=== PATIENT | male | born 1940 | race Caucasian/White ===

== ENCOUNTER 2017-12-06 18:20 | Inpatient (IN) | payer OTHER, MEDICARE ==
[~2017-12-06] VITALS: Ht 177.8 cm; Wt 92.2 kg
[~2017-12-06 18:20] MED LIST: ACET500 PO; AMLO10 PO; ASPI81CH PO; BISA5EC PO; CARV6.25 PO; CETI5 PO; CHOL10002 PO; CLON.1 PO; CLON.2 PO; GEMF600 PO; Glucagon Emergen1 MG SC; Glucose Gel38 GM PO; IBUP400 PO; INSUASPI SC; INSULANPEN SC; KETO.5OPSO BOTHEYES; MENTHOL TOP; METHYL TOP; NITR.4SL SL; NITR.6SL SL; OFLO.3OPSO BOTHEYES; Omnipred10 ML BOTHEYES; PANT20 PO; Prilosec Otc20 MG PO; RANI150 PO; TAMS.4ER PO; Thera-Gesic Ana85 GM TOP
[2017-12-06 20:15] LABS: Creatinine, Blood 1.26 mg/dL (0.60-1.20)
[2017-12-06 22:58] LABS: Bun/Creatinine Ratio 17.5 (12.0-20.0); Calcium, Blood 8.8 mg/dL (8.5-10.1); Potassium, Blood 4.4 mmol/L (3.5-5.5)
[2017-12-07 05:46] LABS: Hematocrit 38.4 % (37.0-53.0); Hemoglobin 12.5 g/dL (13.5-17.5); Mean Corpuscular HGB 28.1 pg (26.0-34.0); Mean Corpuscular HGB Conc 32.6 g/dL (31.5-36.5); Mean Corpuscular Volume 86 fL (80-100); Platelet Count 241 K/mm3 (150-400); RDW Coefficient Variation 13.5 % (11.7-14.2); RDW Standard Deviation 41.4 fL (35.1-46.3); Red Blood Cell Count 4.45 M/mm3 (4.30-5.90); White Blood Cell Count 6.69 K/mm3 (4.00-11.30)
[2017-12-07 06:11] LABS: Anion Gap 9 mmol/L (6-16); Blood Urea Nitrogen 22 mg/dL (8-24); Bun/Creatinine Ratio 21.8 (12.0-20.0); CO2, Blood 25 mmol/L (21-32); Calcium, Blood 8.5 mg/dL (8.5-10.1); Chloride, Blood 109 mmol/L (98-108); Creatinine, Blood 1.01 mg/dL (0.60-1.20); Glomerular Filtration Rate >60 (60-); Glucose, Blood 100 mg/dL (70-99); Potassium, Blood 4.2 mmol/L (3.5-5.5); Sodium, Blood 143 mmol/L (136-145)
[2017-12-07 06:13] LABS: Troponin I 0.243 ng/mL (0.000-0.040)
[2017-12-08 04:00] LABS: BASOPHILS ABSOLUTE AUTO 0.04 K/mm3 (0.00-0.23); BASOPHILS PERCENT AUTO 0 % (0-2); EOSINOPHILS ABSOLUTE AUTO 0.29 K/mm3 (0.00-0.68); EOSINOPHILS PERCENT AUTO 3 % (0-6); Hematocrit 38.3 % (37.0-53.0); Hemoglobin 12.7 g/dL (13.5-17.5); IMMATURE GRAN ABSOLUTE AUTO 0.04 K/mm3 (0.00-0.10); IMMATURE GRAN PERCENT AUTO 0 % (0-1); LYMPHOCYTES ABSOLUTE AUTO 1.74 K/mm3 (0.84-5.20); LYMPHOCYTES PERCENT AUTO 18 % (21-46); MONOCYTES ABSOLUTE AUTO 0.66 K/mm3 (0.16-1.47); MONOCYTES PERCENT AUTO 7 % (4-13); Mean Corpuscular HGB Conc 33.2 g/dL (31.5-36.5); Mean Corpuscular Volume 84 fL (80-100); Mean Platelet Volume 11.2 fL (9.1-12.4); NEUTROPHILS ABSOLUTE AUTO 6.96 K/mm3 (1.96-9.15); NEUTROPHILS PERCENT AUTO 72 % (41-73); Platelet Count 249 K/mm3 (150-400); RDW Coefficient Variation 13.7 % (11.7-14.2); RDW Standard Deviation 41.9 fL (35.1-46.3); Red Blood Cell Count 4.54 M/mm3 (4.30-5.90); White Blood Cell Count 9.73 K/mm3 (4.00-11.30)
[2017-12-08 04:19] LABS: Albumin, Blood 3.4 g/dL (3.4-5.0); Anion Gap 8 mmol/L (6-16); Blood Urea Nitrogen 16 mg/dL (8-24); Bun/Creatinine Ratio 18.5 (12.0-20.0); CHOL/HDL RATIO 4.4; CO2, Blood 24 mmol/L (21-32); Calcium, Blood 8.6 mg/dL (8.5-10.1); Chloride, Blood 110 mmol/L (98-108); Cholesterol 148 mg/dL (50-200); Creatinine, Blood 0.87 mg/dL (0.60-1.20); Glomerular Filtration Rate >60 (60-); Glucose, Blood 119 mg/dL (70-99); HDL Cholesterol 34 mg/dL (>39); Low Density Lipoprotein Chol 101 mg/dL (0-110); Phosphorus, Blood 2.6 mg/dL (2.5-4.9); Potassium, Blood 3.9 mmol/L (3.5-5.5); Sodium, Blood 142 mmol/L (136-145); Triglycerides 67 mg/dL (30-160); Very Low Density Lipoprot Chol 13 mg/dL (6-32)
[2017-12-08] MEDS ORDERED: BAYER CHEWABLE81 MG PO (10:38)
[2017-12-08] MEDS ORDERED: CLOP75 PO (10:38)
[2017-12-08] MEDS ORDERED: Novolog Fl100 UNIT/1 SC (10:54)
== END 2017-12-08 11:39 | disposition home or self-care (01) | DRG 247 ==
LOC: ER 18:20 → ICUE 19:37 → ICUW 19:37 → ICUE 21:14
PROVIDERS: Internal Medicine; Internal Medicine Interventional Cardiology; Nurse Practitioner Acute Care
PROC: 027034Z Dilation of Coronary Artery, One Artery with Drug-eluting Intraluminal Device, Percutaneous Approach (ICD-10-PCS; principal; 2017-12-07)
PROC: B240ZZ3 Ultrasonography of Single Coronary Artery, Intravascular (ICD-10-PCS; 2017-12-07)
PROC: B2111ZZ Fluoroscopy of Multiple Coronary Arteries using Low Osmolar Contrast (ICD-10-PCS; 2017-12-07)
DX: I21.4 Non-ST elevation (NSTEMI) myocardial infarction (principal); K21.9 Gastro-esophageal reflux disease without esophagitis; Z87.891 Personal history of nicotine dependence; Z79.4 Long term (current) use of insulin; E11.9 Type 2 diabetes mellitus without complications; E78.00 Pure hypercholesterolemia, unspecified; I48.91 Unspecified atrial fibrillation; I44.7 Left bundle-branch block, unspecified; J30.9 Allergic rhinitis, unspecified; N40.0 Benign prostatic hyperplasia without lower urinary tract symptoms; I65.29 Occlusion and stenosis of unspecified carotid artery; I16.0 Hypertensive urgency; E78.1 Pure hyperglyceridemia; G47.33 Obstructive sleep apnea (adult) (pediatric); Z79.82 Long term (current) use of aspirin; Z79.01 Long term (current) use of anticoagulants; I25.10 Atherosclerotic heart disease of native coronary artery without angina pectoris; I48.0 Paroxysmal atrial fibrillation; I48.2 Chronic atrial fibrillation; Z98.52 Vasectomy status; I10 Essential (primary) hypertension
CPT/HCPCS: 36415; 71046; 80048; 80061; 80069; 82947; 83036; 84484; 85025; 85027; 85347; 92978; 93005; 93010; 93306; 93454; 94660; 99152; 99153; 99285; C1725; C1753; C1760; C1769; C1874; C1887; C1894; C9600; J0360; J1644; J1650; J1815; J2250; J3010; J7030; Q9967

== ENCOUNTER 2023-08-14 19:21 | Inpatient (IN) | payer OTHER ==
[~2023-08-14] VITALS: Ht 175.3 cm; Wt 85.4 kg
[~2023-08-14 19:21] MED LIST changes: +BAYER CHEWABLE81 MG PO; +CARV3.125 PO; -CARV6.25 PO; +CLOP75 PO; +Novolog Fl100 UNIT/1 SC
[2023-08-14] MEDS ORDERED: Atropine Sulfate 0.1 MG/ML 10ML SYR IV ONE (19:50)
[2023-08-14 20:15] LABS: Calcium, Ionized (POC) 1.12 mmol/L (1.10-1.46); Chloride (POC) 105 mmol/L (98-108); Creatinine (POC) 1.3 mg/dL (0.8-1.3); Glucose (ISTAT POC) 178 mg/dL (70-99); Hemoglobin (POC) 14.6 g/dL (13.5-17.5); Potassium (POC) 4.3 mmol/L (3.5-5.5); Sodium (POC) 138 mmol/L (135-148); Total CO2 (POC) 22 mmol/L (21-32)
[2023-08-14 20:15] LABS: BASOPHILS ABSOLUTE AUTO 0.06 K/mm3 (0.00-0.23); BASOPHILS PERCENT AUTO 1 % (0-2); EOSINOPHILS ABSOLUTE AUTO 0.54 K/mm3 (0.00-0.68); EOSINOPHILS PERCENT AUTO 6 % (0-6); Hematocrit 43.4 % (37.0-53.0); Hemoglobin 14.1 g/dL (13.5-17.5); IMMATURE GRAN ABSOLUTE AUTO 0.03 K/mm3 (0.00-0.10); IMMATURE GRAN PERCENT AUTO 0 % (0-1); LYMPHOCYTES ABSOLUTE AUTO 2.27 K/mm3 (0.84-5.20); LYMPHOCYTES PERCENT AUTO 25 % (21-46); MONOCYTES ABSOLUTE AUTO 0.62 K/mm3 (0.16-1.47); MONOCYTES PERCENT AUTO 7 % (4-13); Mean Corpuscular HGB 28.7 pg (26.0-34.0); Mean Corpuscular HGB Conc 32.5 g/dL (31.5-36.5); Mean Corpuscular Volume 88 fL (80-100); NEUTROPHILS ABSOLUTE AUTO 5.45 K/mm3 (1.96-9.15); NEUTROPHILS PERCENT AUTO 61 % (41-73); Platelet Count 208 K/mm3 (150-400); Red Blood Cell Count 4.91 M/mm3 (4.30-5.90); White Blood Cell Count 8.97 K/mm3 (4.00-11.30)
[2023-08-14 20:44] LABS: Magnesium, Blood 2.3 mg/dL (1.6-2.4)
[2023-08-14 20:45] LABS: Albumin, Blood 3.5 g/dL (3.4-5.0); Albumin/Globulin Ratio 1.2 (0.8-1.8); Bilirubin, Total 0.4 mg/dL (0.1-1.0); Bun/Creatinine Ratio 17.8 (12.0-20.0); Calcium, Blood 8.4 mg/dL (8.5-10.1); Creatinine, Blood 1.18 mg/dL (0.60-1.20); Potassium, Blood 4.4 mmol/L (3.5-5.5); Thyroid Stimulating Hormone 2.13 uIU/mL (0.360-4.800); Total Protein, Blood 6.5 g/dL (6.4-8.2)
[2023-08-14] MEDS ORDERED: EZET10 PO (20:55)
[2023-08-14] MEDS ORDERED: Isosorbide Mono30 MG PO (20:55)
[2023-08-14] MEDS ORDERED: ENTRESTO 24 MG1 EACH PO (20:56)
[2023-08-14] MEDS ORDERED: FAMO20 PO (20:56)
[2023-08-14] MEDS ORDERED: XARELTO20 MG PO (20:56)
[2023-08-14] MEDS ORDERED: TRIJARDY XR 101 EAC1 PO (20:56)
[2023-08-14] MEDS ORDERED: FLONASE ALLERG9.9 M2 NS (20:57)
[2023-08-14] MEDS ORDERED: VITAMIN B121000 MCG PO (20:58)
[2023-08-14] MEDS ORDERED: Dopamine/Dextrose 250 ML IV SCH (21:05)
[2023-08-14] MEDS ORDERED: NS 1,000 ML IV SCH ×2 (21:35→22:15)
[2023-08-14] MEDS ORDERED: Acetaminophen 325 MG TABLET PO PRN (21:35)
[2023-08-14] MEDS ORDERED: FLU VACC QS2023-24(6MOS UP)/PF 60 MCG/0.5 ML SYRINGE IM SCH (21:35)
--- NOTE | 2023-08-14 22:00 | NUR ---
ASSUMPTION OF CARE RECEIVED INTO CARE, ALERT AND ORIENTED X4. ABLE TO AMBULATE INDEP FROM STRETCHER TO BED. ASYMPTOMATIC BRADYCARDIA AT THIS TIME, IN 3 DEGREE BLOCK HR 25-30S, SBP 140S. SPO2>95% ON RA. BROUGHT IN AND AT BEDSIDE. CARDIOLOGY PHONED, VERBAL ORDERS ENTERED. SEE SHIFT ASSESSMENT FOR FURTHER DETAILS. CALL ALVAREZ IN REACH.
[2023-08-14 22:05] VITALS: BP 143/55
[2023-08-14 22:17] VITALS: BP 143/55
[2023-08-14 23:02] VITALS: BP 132/56
[2023-08-14] MEDS ORDERED: EpiNEPhrine 1 MG/1 ML 1ML Vial IV PRN (23:10)
[2023-08-14] MEDS ORDERED: Atropine Sulfate 0.1 MG/ML 10ML SYR IV PRN (23:10)
[2023-08-14] MEDS ORDERED: EPINEPhrine HCl 0.1 MG/ML 10ML SYR IV PRN (23:45)
[2023-08-15] VITALS (26 sets, daily range): BP systolic 130–177; BP diastolic 31–77
--- NOTE | 2023-08-15 05:44 | NUR ---
SHIFT SUMMARY ADMITTED FROM ER AT 2200. ALERT AND ORIENTED X4, AMBULATES INDEP. IN THIRD DEGREE HEART BLOCK HR 26-36BPM, SBP 130-140S. ASYMPTOMATIC WITH BRADYCARDIA SINCE BEING IN ER. 12 LEAD EKG DONE THIS A.M. ON RA SPO2>95%. USING URINALS INDEP TO VOID. NPO SINCE AUG 14 AT 1500. SON SPENT NIGHT AND REMAINS AT BEDSIDE. PT REMAINS AWAKE LYING IN BED VISITING WITH SON. NO VOICED CONCERNS AT THIS TIME. HAS CALL ALVAREZ IN REACH.
[2023-08-15] MEDS ORDERED: Famotidine 20 MG Tab PO SCH (09:00)
[2023-08-15] MEDS ORDERED: Isosorbide Mononitrate 30 MG TABCR PO SCH (09:00)
[2023-08-15] MEDS ORDERED: Ezetimibe 10 MG Tab PO SCH (09:00)
--- NOTE | 2023-08-15 09:40 | NUR ---
AM NOTE... ASSUMED CARE OF PT AT 0700, PT IS A&Ox4 AND IND AT BASELINE. PT IS CURRENTLY IN A 3RD DEGREE HEART BLOCK WITH RATES IN THE 30'S, PTs BP IS STABLE WITH MAPS>70. PT DENIES ANY CHEST PAIN/PRESSURE, LIGHT HEADEDNESS OR WEAKNESS. PT IS ON RA WITH O2 SATS>95% L/S CLEAR T/O. PT USES A CPAP AT NIGHT. BT ARE PRESENT AND HYPERACTIVE, PT HAS BEEN NPO FOR POSSIBLE PACER PLACEMENT WITH DR. HOLGUIN. AT [address] AND [address]. TEMPLE WERE AT THE BEDSIDE TO ASSESS THE PT. PLANS FOR A PACER/AICD PLACEMENT FOR TOMORROW, NPO AFTER MIDNIGHT. CALL LIGHT IN REACH WILL CONTINUE TO MONITOR.
[2023-08-15] MEDS ORDERED: Insulin Human Lispro 100 Units/ML 3ML Syringe SC SCH ×2 (11:30)
[2023-08-15] MEDS ORDERED: LORazepam 2 MG/ML 1ML Injection IV ONE (14:55)
[2023-08-15] MEDS ORDERED: LORazepam 2 MG/ML 1ML Injection ONE (14:57)
--- NOTE | 2023-08-15 18:51 | NUR ---
SHIFT SUMMARY... PT'S HR CONTINUES TO BE IN THE 30'S, PT HAS ECTOPY WITH ACTIVITY SUCH GETTING UP TO THE BSC BUT IS NOT SYMPTOMATIC. PT'S BP HAS BEEN STABLE. PT IS TO BE NPO AFTER MIDNIGHT FOR AICD PLACEMENT TOMORROW. PACER PADS ARE IN PLACE, ZOLL AT THE BEDSIDE. CALL LIGHT IN REACH WILL CONITNUE TO MONITOR UNTIL REPORT IS GIVEN TO ONCOMING RN.
--- NOTE | 2023-08-15 20:00 | NUR ---
ASSUMPTION OF CARE: RECEIVED REPORT FROM WILMER SCHAFFER. PT ALERT AND ORIENTED. ABLE TO ANSWER QUESTIONS APPROPRIATELY AND MAKE NEEDS KNOWN. PT ON RA WITH SPO2 >95. PT DENIES SOB. CHAINER IN PLACE, THIRD DEGREE HB WITH HR 30'S. PT DENIES CHEST PAIN OR PRESSURE. DENIES LIGHTHEADEDNESS/DIZZINESS. SBP 160'S. PIV'S INTACT, RFA INFUSING TKO. TOLERATING PO INTAKE WELL. ABLE TO VOID INTO URINAL WITH NO ISSUES. PT ABLE TO HAVE A BM IN COMMODE WITH NO ISSUES. ZOLL PADS ATTACHED TO PT AT THIS TIME. PT SON AT THE BEDSIDE, UPDATED TO PLAN OF CARE. BED LOW AND LOCKED, CALL LIGHT IN REACH.
[2023-08-15] MEDS ORDERED: Tamsulosin HCl 0.4 MG Cap PO SCH (21:00)
[2023-08-16] VITALS (34 sets, daily range): BP systolic 135–178; BP diastolic 49–167
[2023-08-16 05:00] LABS: BASOPHILS ABSOLUTE AUTO 0.06 K/mm3 (0.00-0.23); BASOPHILS PERCENT AUTO 1 % (0-2); EOSINOPHILS ABSOLUTE AUTO 0.37 K/mm3 (0.00-0.68); EOSINOPHILS PERCENT AUTO 5 % (0-6); Hematocrit 41.1 % (37.0-53.0); Hemoglobin 13.3 g/dL (13.5-17.5); IMMATURE GRAN ABSOLUTE AUTO 0.01 K/mm3 (0.00-0.10); IMMATURE GRAN PERCENT AUTO 0 % (0-1); LYMPHOCYTES ABSOLUTE AUTO 2.16 K/mm3 (0.84-5.20); LYMPHOCYTES PERCENT AUTO 28 % (21-46); MONOCYTES ABSOLUTE AUTO 0.63 K/mm3 (0.16-1.47); MONOCYTES PERCENT AUTO 8 % (4-13); Mean Corpuscular HGB 28.7 pg (26.0-34.0); Mean Corpuscular HGB Conc 32.4 g/dL (31.5-36.5); Mean Corpuscular Volume 89 fL (80-100); NEUTROPHILS ABSOLUTE AUTO 4.55 K/mm3 (1.96-9.15); NEUTROPHILS PERCENT AUTO 58 % (41-73); Platelet Count 165 K/mm3 (150-400); RDW Coefficient Variation 14.2 % (11.7-14.2); RDW Standard Deviation 45.4 fL (35.1-46.3); Red Blood Cell Count 4.64 M/mm3 (4.30-5.90); White Blood Cell Count 7.78 K/mm3 (4.00-11.30)
--- NOTE | 2023-08-16 06:09 | NUR ---
SHIFT SUMMARY: PT REMAINS ALERT AND ORIENTED T/O THE SHIFT. ABLE TO MAKE NEEDS KNOWN. PT ON 2L NC WITH SPO2 >95%, FOR COMFORT. PT HAD C/O SOB WHICH WAS RELIEVED WITH THE OXYGEN. LUNG SOUNDS REMAIN CLEAR. ACCOUNTANT ASSISTANT IN PLACE, THIRD DEGREE BLOCK WITH HR 20'S-30'S. MANUAL BP OBTAINED T/O THE SHIFT. SBP 140'S-160'S. PT HAD SEVERAL RUNS OF VTACH T/O THE SHIFT, ASYMPTOMATIC WITH EPISODES. SEE STRIPS IN CHART. PT DENIES ANY CHEST PAIN/PRESSURE, NO C/O DIZZINESS OR LIGHTHEADEDNESS. TKO INFUSING THROUGH LFA PIV. LAC PIV INTACT AND SALINE LOCKED. PT ABLE TO STAND AT BEDSIDE TO USE URINAL T/O THE SHIFT, VOIDING YELLOW URINE. MEDIUM BROWN BM THIS SHIFT. PT MADE NPO AT MIDNIGHT FOR PROCEDURE TODAY. PT SON REMAINS AT THE BEDSIDE T/O THE SHIFT, UPDATED TO PLAN OF CARE. CALL LIGHT IN REACH, BED LOW AND LOCKED.
[2023-08-16 06:49] LABS: Bun/Creatinine Ratio 18.1 (12.0-20.0); Calcium, Blood 8.6 mg/dL (8.5-10.1); Creatinine, Blood 1.05 mg/dL (0.60-1.20); Magnesium, Blood 2.3 mg/dL (1.6-2.4)
--- NOTE | 2023-08-16 06:53 | NUR ---
ARREST: Vtach on monitor and pt with agonal respirations. See paper documentation in chart.
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
--- NOTE | 2023-08-16 07:00 | NUR ---
ASSUME CARE: I have assumed care of this patient.
--- NOTE | 2023-08-16 07:19 | NUR ---
CARY: At bedside to assess pt. Will go for pacer JAMIE.
[2023-08-16] MEDS ORDERED: Heparin Sodium 1000 Units/ML 10ML MDV ONE ×4 (07:25→13:41)
[2023-08-16] MEDS ORDERED: NS 250 ML IV ONE ×2 (07:25→09:44)
[2023-08-16] MEDS ORDERED: NS 1,000 ML IV ONE ×2 (07:27→13:41)
[2023-08-16] MEDS ORDERED: FentaNYL Citrate 50 MCG/ML 2 ML Injection ONE ×3 (07:27→16:51)
[2023-08-16] MEDS ORDERED: Midazolam HCl 1MG / ML 2ML Vial ONE ×5 (07:27→17:14)
--- NOTE | 2023-08-16 07:37 | NUR ---
MIND READER: Pt to photofinishing laboratory worker with photofinishing laboratory worker team.
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
[2023-08-16] MEDS ORDERED: NiCARdipine HCL 1,000 MCG/5 ML SYR ONE (09:44)
[2023-08-16] MEDS ORDERED: Nitroglycerin 2 MG/20 ML BTL ONE (09:44)
--- NOTE | 2023-08-16 10:49 | NUR ---
PROVIDER PHONE CALL: Discussed PO medications with Dr James. Ok to give.
--- NOTE | 2023-08-16 10:53 | NUR ---
"Spiritual Care Intro Visit | Nurse request Pt. seemed to be resting when I entered the room. Spouse and other family are at bedside. Spouse welcomed me. Pt. opened his eyes and began to verbalize appreciation for the care he is receiving at our hospital, and in our ICU unit in particular. Listened with interest and empathy. The family verbalized gratitude for the spiritual care visit. Will remain avilable to Pt. and family."
[2023-08-16] MEDS ORDERED: CeFAZolin Sodium 1000 mg Vial ONE (13:41)
[2023-08-16] MEDS ORDERED: NS 500 ML IV ONE ×2 (13:52→14:20)
--- NOTE | 2023-08-16 14:05 | NUR ---
RETURN TO PAPER CUP MACHINE OPERATOR with labor service representative RNs.
[2023-08-16] MEDS ORDERED: CeFAZolin Sodium 2,000 MG VIAL ONE (14:20)
[2023-08-16] MEDS ORDERED: NS 100 ML IV ONE (14:21)
--- NOTE | 2023-08-16 18:30 | NUR ---
RETURN TO ICU: Pt back from bed laborer. He is alert and oriented x 4 with slurred speech. He reports left shoulder pain. Dressing in place over pacer site; CDI. Distal perfusion intact. Left AC PIV discontinued and sling placed. Family at bedside.
--- NOTE | 2023-08-16 19:15 | NUR ---
ASSUMPTION OF CARE RECEIVED INTO CARE, PROCEDURE REPORT LOOKED OVER/PACER SETTINGS. BEDSIDE REPORT GIVEN BY DAY RN. PACER SITE CHECKED WITH DAY RN. PT AWAKE AND ALERT LYING IN BED, LEFT ARM IN SLING. FAMILY AT BEDSIDE. VENTRICULAR PACED, HR 80-90S, HYPERTENSIVE IN 170S AT THIS TIME. CORDIS IN PLACE TO RT IJ AND SECURE. NO VOICED CONCERNS BY PT OR FAMILY AT THIS TIME. CALL ALVAREZ IN REACH. SEE SHIFT ASSESSMENT FOR FURTHRE DETAILS.
[2023-08-16] MEDS ORDERED: CeFAZolin Sodium 2,000 MG in NS 50 ML IV SCH (23:30)
[2023-08-17] VITALS (15 sets, daily range): BP systolic 117–176; BP diastolic 70–103
[2023-08-17 04:00] LABS: BASOPHILS ABSOLUTE AUTO 0.04 K/mm3 (0.00-0.23); BASOPHILS PERCENT AUTO 0 % (0-2); EOSINOPHILS ABSOLUTE AUTO 0.22 K/mm3 (0.00-0.68); EOSINOPHILS PERCENT AUTO 2 % (0-6); Hematocrit 42.4 % (37.0-53.0); Hemoglobin 13.8 g/dL (13.5-17.5); IMMATURE GRAN ABSOLUTE AUTO 0.03 K/mm3 (0.00-0.10); IMMATURE GRAN PERCENT AUTO 0 % (0-1); LYMPHOCYTES PERCENT AUTO 14 % (21-46); MONOCYTES ABSOLUTE AUTO 0.83 K/mm3 (0.16-1.47); MONOCYTES PERCENT AUTO 9 % (4-13); Mean Corpuscular HGB 28.6 pg (26.0-34.0); Mean Corpuscular HGB Conc 32.5 g/dL (31.5-36.5); Mean Corpuscular Volume 88 fL (80-100); NEUTROPHILS ABSOLUTE AUTO 6.72 K/mm3 (1.96-9.15); NEUTROPHILS PERCENT AUTO 74 % (41-73); Platelet Count 163 K/mm3 (150-400); RDW Coefficient Variation 13.9 % (11.7-14.2); RDW Standard Deviation 44.3 fL (35.1-46.3); Red Blood Cell Count 4.83 M/mm3 (4.30-5.90); White Blood Cell Count 9.14 K/mm3 (4.00-11.30)
[2023-08-17 04:15] LABS: Bun/Creatinine Ratio 19.9 (12.0-20.0); Calcium, Blood 8.4 mg/dL (8.5-10.1); Creatinine, Blood 0.95 mg/dL (0.60-1.20); Potassium, Blood 4.1 mmol/L (3.5-5.5)
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
--- NOTE | 2023-08-17 07:00 | NUR ---
ASSUME CARE: I have assumed care of this patient.
[2023-08-17] MEDS ORDERED: Amiodarone HCl 200 MG Tab PO SCH (08:00)
[2023-08-17] MEDS ORDERED: Carvedilol 6.25 MG Tab PO SCH (08:00)
[2023-08-17] MEDS ORDERED: Carvedilol 3.125 MG Tab PO SCH (08:00)
[2023-08-17] MEDS ORDERED: Cephalexin Monohydrate 500 MG Cap PO SCH (09:00)
[2023-08-17] MEDS ORDERED: Isosorbide Mononitrate 60 MG TABCR PO SCH (09:00)
[2023-08-17] MEDS ORDERED: Aspirin 81 MG Chew PO SCH (09:00)
[2023-08-17] MEDS ORDERED: Empagliflozin 10 MG TAB PO SCH (09:00)
[2023-08-17] MEDS ORDERED: Sacubitril/Valsartan 24 MG-26 MG Tab PO SCH (09:00)
[2023-08-17] MEDS ORDERED: ASPI81CH PO (14:10)
[2023-08-17] MEDS ORDERED: Amiodarone HCl200 MG PO ×2 (14:12→14:13)
[2023-08-17] MEDS ORDERED: JARDIANCE10 MG PO (14:16)
[2023-08-17] MEDS ORDERED: CEPH500 PO (14:36)
--- NOTE | 2023-08-17 15:30 | NUR ---
DISCHARGE SUMMARY: Pt and spouse were provided verbal and written discharge education. Questions answered. IVs discontinued. Prescriptions faxed to [facility]. RN received verbal confirmation from [facility] that rx arrived and will be filled. Pt wheeled out via wheelchair by [facility].
[2023-08-20] MEDS ORDERED: Amiodarone HCl 200 MG Tab PO SCH (09:00)
[2023-08-27] MEDS ORDERED: Amiodarone HCl 200 MG Tab PO SCH (09:00)
== END 2023-08-17 15:33 | disposition home or self-care (01) | DRG 276 ==
LOC: ER 19:21 → ICUE 21:01
PROVIDERS: Emergency Medicine; Family Medicine; ADMIT Student in an Organized Health Care Education/Training Program
PROC: 0JH609Z Insertion of Cardiac Resynchronization Defibrillator Pulse Generator into Chest Subcutaneous Tissue and Fascia, Open Approach (ICD-10-PCS; principal; 2023-08-16)
PROC: 02HK3KZ Insertion of Defibrillator Lead into Right Ventricle, Percutaneous Approach (ICD-10-PCS; 2023-08-16)
PROC: 02PA3MZ Removal of Cardiac Lead from Heart, Percutaneous Approach (ICD-10-PCS; 2023-08-16)
PROC: 02H63KZ Insertion of Defibrillator Lead into Right Atrium, Percutaneous Approach (ICD-10-PCS; 2023-08-16)
PROC: 5A2204Z Restoration of Cardiac Rhythm, Single (ICD-10-PCS; 2023-08-16)
DX: I44.2 Atrioventricular block, complete (principal); I46.2 Cardiac arrest due to underlying cardiac condition; I50.21 Acute systolic (congestive) heart failure; I47.21 Torsades de pointes; I27.20 Pulmonary hypertension, unspecified; I48.0 Paroxysmal atrial fibrillation; K21.9 Gastro-esophageal reflux disease without esophagitis; I25.10 Atherosclerotic heart disease of native coronary artery without angina pectoris; I49.01 Ventricular fibrillation; I11.0 Hypertensive heart disease with heart failure; E11.9 Type 2 diabetes mellitus without complications; N40.0 Benign prostatic hyperplasia without lower urinary tract symptoms; I45.10 Unspecified right bundle-branch block; E78.5 Hyperlipidemia, unspecified; I25.5 Ischemic cardiomyopathy; G47.33 Obstructive sleep apnea (adult) (pediatric); Z86.74 Personal history of sudden cardiac arrest; Z88.8 Allergy status to other drugs, medicaments and biological substances; Z95.5 Presence of coronary angioplasty implant and graft; Z79.899 Other long term (current) drug therapy; Z79.4 Long term (current) use of insulin; Z79.02 Long term (current) use of antithrombotics/antiplatelets; Z79.82 Long term (current) use of aspirin; Z98.52 Vasectomy status; Z90.49 Acquired absence of other specified parts of digestive tract; Z98.890 Other specified postprocedural states; Z87.891 Personal history of nicotine dependence
CPT/HCPCS: 33210; 33264; 36415; 71045; 76937; 80047; 80048; 80053; 82947; 83735; 84443; 84484; 85014; 85025; 86850; 86900; 86901; 93005; 93010; 93454; 94760; 94762; 96374; 97165; 97535; 99152; 99153; 99285-25; A9270; C1769; C1781; C1882; C1894; C1895; C1898; C8929; J0461; J0690; J1265; J1644; J2060; J2250; J3010; J7030; J7040; J7050; Q9957; Q9967